=== PATIENT | male | born 1970 | race African-American/Black ===

== ENCOUNTER 2023-09-11 02:24 | Inpatient (IN) | payer MEDICARE, SELFPAY ==
[2023-09-10 18:35] VITALS: BMI 23.1
[2023-09-10 18:37] VITALS: BP 132/98
[2023-09-10 18:42] LABS: Glucose - Point of Care 465 mg/dl (70-99)
[2023-09-10 19:01] LABS: % Basophils 0.6 % (0-2); % Immature Granulocytes 0.5 % (0-0.5); % Monocytes 8.9 % (1.7-9.3); Absolute Basophils 0.1 10^3/uL (0-0.2); Absolute Eosinophils 0.1 10^3/uL (0-0.7); Absolute Lymphocytes 1.9 10^3/uL (1.2-3.4); Absolute Monocytes 0.8 10^3/uL (0.1-0.6); Absolute Neutrophils 5.9 10^3/uL (1.4-6.5); Hematocrit 43.9 % (39.0-52.0); Hemoglobin 15.4 g/dL (13.0-18.0); Mean Corp Hgb Conc. 35.1 g/dL (33.0-37.0); Mean Corpuscular Hgb 28.7 pg (27.0-31.0); Mean Corpuscular Volume 81.9 fL (80.0-94.0); Mean Platelet Volume 9.9 fL (7.4-10.4); Nucleated Red Blood Cells % 0 % (-); Platelet Count 340 10^3/uL (130-400); Red Blood Cell Count 5.36 10^6/uL (4.70-6.10); Red Cell Dist. Width 13.5 % (11.5-14.5); White Blood Cell Count 8.8 10^3/uL (4.8-10.8)
[2023-09-10 19:24] LABS: ALT (SGPT) 26 U/L (0-50); AST (SGOT) 29 U/L (17-59); Albumin 4.5 g/dl (3.5-5.0); Alkaline Phosphatase 254 U/L (38-126); Blood Urea Nitrogen 13 mg/dl (9-20); Calcium 9.9 mg/dl (8.4-10.2); Carbon Dioxide 19 mmol/L (22-30); Chloride 100 mmol/L (98-107); Glucose 398 mg/dl (70-99); Lipase 387 U/L (23-300); Potassium 4.1 mmol/L (3.5-5.1); Sodium 131 mmol/L (135-145); Total Bilirubin 0.6 mg/dl (0.2-1.3); Total Protein 7.6 g/dl (6.3-8.2); eGFR > 60.00
[2023-09-10 19:40] VITALS: BP 131/81
[2023-09-10 20:00] VITALS: BP 117/67
[2023-09-10] MEDS: NSS 1000 IV (20:39)
--- NOTE | 2023-09-10 20:52 | ED.GENMED ---
History of Present Illness
General
Chief Complaint: Blood Sugar Problem
Source: patient
Exam Limitations: none
Time Seen by Provider: 09/10/23 19:30
Nursing documentation reviewed up to this point in time: agreed with
Travel History
Have you had any contact with someone who has COVID-19?: No
Do you have any symptoms of coronavirus? Fever > 100 degrees, chills, cough, shortness of breath, sore throat, loss of taste or smell, muscle aches, or headache?: No
History of Present Illness
History of Present Illness:
The patient is a 53-year-old man with a past medical history of insulin-dependent diabetes who reports that he has been feeling dizzy for several days and feels as though his balance is off. He is also concerned that his blood sugar is elevated.
He admits he has not been taking any of his medication for 4 to 5 months. When asked why, he states ' he has a lot going on'. Patient reports that he has been feeling lightheaded and his balance seems off. He denies chest pain but reports mild
shortness of breath. He denies fevers and chills. He reports he has slight blurred vision but denies any loss of vision or double vision. He denies headache.
Past History
Past History
ED Past Medical History: IDDM, Psychiatric (Anxiety) and Other (type II diabetes, pancreatitis, Umbilical hernia)
ED Past Surgical History: Tonsilectomy
Social History
Tobacco: Smoker
Alcohol: None
Drug: None
Personal: Single
Living: with family
Employment: Other
Family History
Family History: Other
Review of Systems
Review of Systems
Allergies reviewed?: Yes
All Other Systems: ROS reviewed and negative except as documented in HPI and ROS
Constitutional: Reports fatigue
EENT: Reports no symptoms
Respiratory: Reports trouble breathing
Cardiac: Reports no symptoms
ABD/GI: Reports no symptoms
: Reports no symptoms
Musculoskeletal: Reports no symptoms
Skin: Reports no symptoms
Neurological: Reports dizzy
Endocrine: Reports no symptoms
Hematologic/Lymphatic: Reports no symptoms
Psychiatric: Reports no symptoms
Phy Exam
Physical Exam
Physical Exam:
Physical Exam
General: no apparent distress, not acutely ill
Neck: supple. no meningeal signs. normal psoterior pharynx
Heart: s1/s2 regular rate and rhythm, no murmur. equal radial pulses.
Lungs: no acute respiratory distress. clear bilaterally
Abdomen: normal bowel sounds. not tender. no CVAT
Neuro: alert and orientedx3. no focal neurological deficits. Extraocular muscles intact. Cranial nerves equal and symmetric bilaterally. Normal [id number]. PERRL
Skin: no rash
Psychiatric: well kept. interactive and cooperative
Extremities: no edema. no calf tenderness. negative homans. good distal pulses
Course
Orders/Labs/Results
Orders:
Orders
09/10/23 18:54
B-Hydroxybutyrate Urgent
Complete Blood Count/With Diff Urgent
Comprehensive Metabolic Panel Urgent
Lipase Urgent
09/10/23 20:37
0.9% Sodium Chloride 1000 ml [Nss] 1,000 ml IV BOLUS
09/10/23 20:52
CT Head W/o Iv Contrast Urgent
Comment:
Reason For Exam: off balance
09/10/23 20:57
CR Chest - 2 Views Urgent
Comment:
Reason For Exam: SOB
09/10/23 20:58
Electrocardiogram (*1) Urgent
Reason for Study: Palpitations
EKG- Treatment ONCE
09/10/23 21:05
Troponin I Urgent
09/10/23 21:06
Urinalysis Reflex To Culture Urgent
Date Specimen was Collected: 09/10/23
Time Specimen was Collected: 21:05
09/11/23 01:01
Insulin Aspart Pen [Novolog Flexpen] 10 units SC NOW STA
09/11/23 01:02
Admit/Transfer Patient As Directed
Co-Sign Provider:
Level of Care: Inpatient admission
Assign to:: Telemetry
Physician / Group: [email or web address]
Diagnosis: Uncontrol DM, Non compliance with Rx,Acute balance dysfunction
Reason for Telemetry: Other
Other Reason for Telemetry: r/o CVA
Date to Stop Telemetry: 09/13/23
Time to Stop Telemetry: 11:00
Reason for Hospitalization: Uncontrol DM, Non compliance with Rx,Acute balance dysfunction due to dizziness
Expected length of stay greater than two midnights?: Yes
ELOS- Estimated Length of Stay in days: 3
I certify the patient meets the requirements for IP care: Yes
09/11/23 01:05
Code Status As Directed
Resuscitation Status: Full Code
09/11/23 01:08
Aspirin 325 mg PO NOW STA
09/11/23 02:00
Flush (0.9% Sodium Chloride) [Flush (Nss)] See Dose Instructions IV PER PROTOCOL
09/13/23 11:00
DC Protocol for Telemetry ONCE
Abnormal Lab Results
09/10/23 09/10/23 09/10/23
18:40 18:54 21:06
Absolute Monos (auto) 0.8 H 10^3/uL
(0.1-0.6)
Sodium 131 L mmol/L
(135-145)
Carbon Dioxide 19 L mmol/L
(22-30)
Glucose 398 H mg/dl
(70-99)
Alkaline Phosphatase 254 H U/L
(38-126)
Lipase 387 H U/L
(23-300)
Urine Ketones 3+ A
(Negative)
Urine Glucose 3+ A
(Negative)
B-Hydroxybutyrate 4.30 H mmol/L
(0.02-0.27)
POC Glucose 465 H* mg/dl
(70-99)
09/10/23 09/11/23
22:36 01:50
Absolute Monos (auto)
Sodium
Carbon Dioxide
Glucose
Alkaline Phosphatase
Lipase
Urine Ketones
Urine Glucose
B-Hydroxybutyrate
POC Glucose 286 H mg/dl 255 H mg/dl
(70-99) (70-99)
09/10/23 18:54
09/10/23 18:54
Vital Signs
Initial and Last Documented VS:
Initial Vital Signs
Temp Pulse Resp BP Pulse Ox
97.5 F 107 18 132/98 100
09/10/23 18:37 09/10/23 18:37 09/10/23 18:37 09/10/23 18:37 09/10/23 18:37
Last Documented Vital Signs
Temp Pulse Resp BP Pulse Ox
97.5 F 80 16 119/72 96
09/10/23 18:37 09/11/23 00:15 09/11/23 00:15 09/11/23 00:00 09/11/23 00:15
MDM/Problems Addressed
Differential Diagnosis Includes:
Diabetic hyperglycemia, stroke, hyponatremia
MDM/Problems Addressed:
Patient presents with acute dizziness
Chronic conditions affecting care: DM
Acute Exacerbation and/or Progression of Chronic Illness: DM
*Radiology
Radiology exam reviewed: preliminary read by ED provider (Chest x-ray read by me. No acute disease)
*Pulse Oximetry
Patient hypoxic: no
*EKG
Interpreted by ED Provider?: Yes
Interpretation: abnormal
Comparison EKG: no comparison EKG present
Rate: normal
Rhythm: sinus
Moore: normal axis
Interval: normal interval
QRS Pattern: normal QRS
Ischemia: non-specific ST changes
*Rail Gang Supervisor Interpretation
Rate: normal
Interpretation: normal
Rhythm: sinus
*Critical Care Note
Total Time (30-74mins, 75-104mins- exclusive of procedures): Not Applicable
Data Reviewed
Review of Other/Old Records Reveals: Discharge Summary (Discharge summary reviewed from 06/24/2022 when patient was admitted for new onset type 2 diabetes mellitus)
Source: patient and previous hospital records
ED Attending Note
-
Portions of this chart may have been created with voice recognition software.� Occasional wrong word or��sound alike� substitutions may have occurred due to the inherent limitations of voice recognition software.
Discharge Plan
Departure
Patient Disposition: Admit
Admit to: Med/Surg
Presentation/result/management discussed w/ accepting MD/DO: Hospitalist
Patient with high blood pressure during this ER visit?: Yes
Condition: Good
Covid-19: Not Applicable
Discharge Problem:
Diabetes mellitus due to underlying condition, uncontrolled, with hyperglycemia
Prescriptions:
No Action
metformin 500 mg Tablet
500 mg PO BID@0800,1700 Qty: 60 0RF
insulin aspart U-100 [Novolog FlexPen U-100 Insulin] 100 unit/mL (3 mL) Insulin Pen
8 unit SC AC Qty: 15 0RF
insulin glargine [Lantus Solostar U-100 Insulin] 100 unit/mL (3 mL) insulin pen
17 unit SC QPM Qty: 15 0RF
metformin 1,000 mg tablet
1,000 mg PO BID Qty: 60 0RF
glipizide 5 mg tablet
5 mg PO DAILY Qty: 30 0RF
metformin 1,000 mg tablet
1,000 mg PO BID Qty: 60 0RF
glipizide 5 mg tablet extended release 24hr
5 mg PO DAILY Qty: 30 0RF
Referrals:
UNKNOWN - PT DOES,NOT KNOW [Unknown Provider] -
Interventions
Interventions:
*Risk Screen - Suicide Last Done: 09/10/23 19:42
*General Assessment Last Done: 09/10/23 18:37
*Neglect/Abuse Screening Last Done: 09/10/23 19:42
ED- Fall Risk Assessment Last Done: 09/10/23 19:42
*ED COVID-19 Vaccine History Last Done: 09/10/23 18:37
ED- Neurological Assessment Last Done: 09/10/23 19:42
Discharge Date and Time
Print Language: SOMALI
[2023-09-10 21:00] VITALS: BP 103/65
[2023-09-10 21:19] LABS: Urine Albumin Negative (Neg - Trace); Urine Bilirubin Negative (Negative); Urine Character Clear (Clear); Urine Color Straw; Urine Glucose 3+ (Negative); Urine Ketone 3+ (Negative); Urine Leukocyte Negative (Negative); Urine Nitrite Negative (Negative); Urine Occult Blood Negative (Negative); Urine Specific Gravity 1.015 (<1.030); Urine Urobilinogen Negative (Neg - 1+)
[2023-09-10 21:45] LABS: Troponin I 0.024 ng/ml
[2023-09-10 22:00] VITALS: BP 118/75
[2023-09-10 22:38] LABS: Glucose - Point of Care 286 mg/dl (70-99)
[2023-09-10 23:00] VITALS: BP 122/68
[2023-09-11] VITALS (11 sets, daily range): BP systolic 104–134; BP diastolic 61–89; PULSE 85–99; O2SAT 99; BMI 22.3; BMI 42.6
--- NOTE | 2023-09-11 00:56 | HPS.HSE ---
Addendum entered and electronically signed by Lavon Peña MD 09/11/23 01:38:
Correction:
Uncontrol DM
Non AG MA @ 12
POS BHB but suspect starvation ketosis
Non compliance with Meds for last 4-5 months
- IV NS
- Aspart 10 units now and resume 8 AC
- Resume Lantus 17 units HS
- Held Metformin <del>Resume</del> <del>Metformin</del> <del>500</del> <del>BID</del>
- add ISS low
Addendum entered and electronically signed by Lavon Peña MD 09/11/23 01:22:
Ortho VSS now and once in AM
Original Note:
Family Physician
-
Family Physician: * NONE
Chief Complaint
-
Balance issues, Hi BG , not taking Meds
History of Present Illness
HPI
53M Poor historian Dxed DMT2 as 2022 Asif, DC'd on Lantus/Aspart and Metformin pw :
Acute dizziness
- for 1 week
- Coats balance issue with ambulation but denied any falls
- Non focal acute weakness
- Denied abnormal vision
- denied HAN , N & V
Elevated BG @ ER 398
- Non compliance with Meds for last 4-5 months
- No PCP
- Unable to fill the prescription ? no insurance
Medical History
Past Medical History
Past Medical History: Reports IDDM
Past Surgical History: Reports None
Social History
Tobacco: Non-smoker
Alcohol: None
Drug: None
Living: Usp
Family History
Family History: Not pertinent
Allergies / Home Medications
Allergies reflects when Allergies were last updated in [facility].
Home Medications with original date entered in [facility]
Allergy/Medication List:
Allergies
Allergy/AdvReac Type Severity Reaction Status Date / Time
No Known Allergies Allergy Verified 09/10/23 18:40
Home Medications
insulin aspart U-100 100 unit/mL (3 mL) subcutaneous pen (Novolog FlexPen U-100 Insulin aspart) 8 unit (0.08 mL) SC AC #15 mL 06/24/22
insulin glargine 100 unit/mL (3 mL) subcutaneous pen (Lantus Solostar U-100 Insulin) 17 unit (0.17 mL) SC QPM #15 mL 06/24/22
metformin 500 mg tablet 500 mg PO BID@0800,1700 #60 tabs 06/24/22
glipizide 5 mg tablet 5 mg PO DAILY #30 tabs 08/09/22
metformin 1,000 mg tablet 1,000 mg PO BID #60 tabs 08/09/22
glipizide 5 mg tablet, extended release 24 hr 5 mg PO DAILY Diabetes #30 tabs 02/04/23
metformin 1,000 mg tablet 1,000 mg PO BID Diabetes #60 tabs 02/04/23
If Other, explain: pending Rx reconcilliation
Review of Systems
-
Constitutional: Reports No Symptoms
EENT: Reports No Symptoms
Respiratory: Reports No Symptoms
Cardiac: Reports No Symptoms
Abdomen/GI: Reports No Symptoms
: Reports No Symptoms
Musculoskeletal: Reports No Symptoms
Skin: Reports No Symptoms
Neurological: Reports Dizzy
Hematologic/Lymphatic: Reports No Symptoms and See HPI
Psych: Reports No Symptoms
Physical Exam
Vital Signs
Vital Signs
Temp Pulse Resp BP Pulse Ox
97.5 F 80 16 119/72 96
09/10/23 18:37 09/11/23 00:15 09/11/23 00:15 09/11/23 00:00 09/11/23 00:15
Physical Exam
General: No Apparent Distress; No Appears Chronically Ill
HEENT: NormoCephalic, Anicteric, Moist mucous membranes, Atraumatic, PERRLA and Other
Respiratory: Clear
Cardiac: S1/S2 and Regular Rhythm
Breast: Deferred by me
GI: Soft, Non Tender, Non Distended and Normal Bowel Sounds
Genito-urinary: Deferred by me
Musculoskeletal: No Edema
Skin: Warm and Dry
Neuro: AO x 3 and Nonfocal/grossly intact; No Slurred Speech or Facial Droop
Psych: Calm
Laboratory Results
-
09/10/23 18:54
09/10/23 18:54
Laboratory Results
Total Bilirubin 0.6 mg/dl (0.2-1.3) 09/10/23 18:54
AST 29 U/L (17-59) 09/10/23 18:54
ALT 26 U/L (0-50) 09/10/23 18:54
Alkaline Phosphatase 254 U/L (38-126) H 09/10/23 18:54
Troponin I 0.024 ng/ml 09/10/23 21:05
Lipase 387 U/L (23-300) H 09/10/23 18:54
Data Reviewed
-
CT Scan: Report Reviewed by me
Lab Data: Labs Reviewed by me
Old Records: Reviewed
Impression/Plan
-
Reviewed VS: Afebrile, HR 80 BP 103/65 - 119/72 RR 16 POx 96 on RA
Data
nl CBC
Na 131
CO2 19
nl Cr
BG 398
Qaopam253
BHB 4.3
Normal AG MA @12
HCT: No obvious stroke
CXR: NAD by my view
Last hospitalist admission: 06/22/22 - 06/24/22 DX: Newly diagnosed diabetes type 2.
ASSESSMENT & PLAN
Uncontrol DM
Non AG MA @ 12
POS BHB but suspect starvation ketosis
Non compliance with Meds for last 4-5 months
- IV NS
- Aspart 10 units now and resume 8 AC
- Resume Lantus 17 units HS
- Resume Metformin 500 BID
- add ISS low
Acute dizziness with balance dysfunction DDX: to acute metabolic issue vs. occult CVA
No nystagmus, non focal exam
- not better even after getting fluids
- empiric loading dose ASA then daily baby ASA
- PT/OT
- Brain MRI to r/o TALENT BUYER region CVA -
- To consider Neuro consult in AM if no progress made with correcting hyperglycemia
DVT Px: LMWH
Code: Full
IP TLM
[2023-09-11] MEDS: ASPIRIN 325 MG PO (01:46)
[2023-09-11 01:52] LABS: Glucose - Point of Care 255 mg/dl (70-99)
[2023-09-11] MEDS: NOVOLOG FLEXPEN 10 UNITS SC (01:53)
[2023-09-11] MEDS: NSS 1000 IV ×3 (03:39→20:30)
--- NOTE | 2023-09-11 06:32 | PTCARENOTE ---
Received patient from ER, AAOx4. Patient ambulated from stretcher to his bed. No c/o pain, does c/o dizziness. Advised patient to call for assistance with any OOB, patient agreeable. Oriented to unit, plan of care continues.
[2023-09-11 06:57] LABS: Hemoglobin 12.9 g/dL (13.0-18.0); Mean Corp Hgb Conc. 34.9 g/dL (33.0-37.0); Mean Corpuscular Hgb 28.5 pg (27.0-31.0); Mean Corpuscular Volume 81.9 fL (80.0-94.0); Platelet Count 300 10^3/uL (130-400); Red Blood Cell Count 4.52 10^6/uL (4.70-6.10); Red Cell Dist. Width 13.4 % (11.5-14.5); White Blood Cell Count 6.8 10^3/uL (4.8-10.8)
[2023-09-11 07:25] LABS: ALT (SGPT) 20 U/L (0-50); AST (SGOT) 22 U/L (17-59); Albumin 2.9 g/dl (3.5-5.0); Alkaline Phosphatase 105 U/L (38-126); Blood Urea Nitrogen 11 mg/dl (9-20); Calcium 8.6 mg/dl (8.4-10.2); Chloride 105 mmol/L (98-107); Estimated Creatinine Clearance > 125 ml/min; Glucose 206 mg/dl (70-99); Lipase 142 U/L (23-300); Potassium 3.7 mmol/L (3.5-5.1); Sodium 134 mmol/L (135-145); Total Bilirubin 0.5 mg/dl (0.2-1.3); Total Protein 5.6 g/dl (6.3-8.2); eGFR > 60.00
[2023-09-11 07:27] LABS: Glucose - Point of Care 229 mg/dl (70-99)
[2023-09-11 07:37] LABS: Carbon Dioxide 23 mmol/L (22-30)
[2023-09-11] MEDS: LOW STRENGTH ASPIRIN 81 MG PO (09:03)
[2023-09-11] MEDS: NOVOLOG FLEXPEN 8 UNITS SC ×3 (09:08→17:50)
[2023-09-11] MEDS: NOVOLOG FLEXPEN-LOW RESISTANCE 2 UNITS SC (09:08)
[2023-09-11 10:36] LABS: Glycohemoglobin (HgbA1c) > 18.5 % (4.0-5.6)
[2023-09-11] MEDS: ANTIVERT 25 MG PO ×2 (11:38→20:33)
[2023-09-11 11:46] LABS: Glucose - Point of Care 285 mg/dl (70-99)
[2023-09-11] MEDS: NOVOLOG FLEXPEN-LOW RESISTANCE 3 UNITS SC (11:51)
--- NOTE | 2023-09-11 13:23 | W.PN.UPDATE ---
Update Note
Progress Note Update
Nonbillable note
Admitting physician history and physical reviewed
1. Acute ataxia
-Denies of having any previous episodes of similar issues. No focal neurological deficit
-Recent ear infection approximately 1 week back possible component of vertigo as well. Patient does state things spinning around. Meclizine as needed ordered
-PT OT evaluation for vestibular assessment
-CT head without contrast negative for acute abnormality, MRI brain without contrast pending
-Maintain on aspirin and statin until posterior circulation CVA ruled out
2. Uncontrolled DM2
-Hemoglobin A1c greater than 18.5
-Increasing insulin Lantus to 20 units at bedtime and novolog 11U premeal
-Diabetes nurse petitioner consulted for how
3. HLD
-check lipid profile
[2023-09-11 16:40] LABS: Glucose - Point of Care 172 mg/dl (70-99)
[2023-09-11] MEDS: LIPITOR 40 MG PO (17:22)
[2023-09-11] MEDS: LANTUS 0.200000000000000011 UNITS SC (17:23)
[2023-09-11] MEDS: NOVOLOG FLEXPEN-LOW RESISTANCE 1 UNITS SC (17:23)
[2023-09-11] MEDS: LOVENOX 40 MG SC (17:23)
[2023-09-11 21:14] LABS: Glucose - Point of Care 229 mg/dl (70-99)
[2023-09-12 03:40] VITALS: BP 138/83
[2023-09-12] MEDS: NSS 1000 IV (04:25)
[2023-09-12 05:58] LABS: HDL Cholesterol 46 mg/dl; LDL Cholesterol, Calculated 99 mg/dl; Total Cholesterol 161 mg/dl (50-199); Triglyceride 84 mg/dl (10-149); Very Low Density Lipoprotein 16 mg/dl (0-30)
[2023-09-12 07:25] VITALS: BP 134/91
[2023-09-12 07:26] LABS: Glucose - Point of Care 181 mg/dl (70-99)
[2023-09-12] MEDS: NOVOLOG FLEXPEN-LOW RESISTANCE 1 UNITS SC ×2 (08:13→17:06)
[2023-09-12] MEDS: NOVOLOG FLEXPEN 8 UNITS SC (08:13)
[2023-09-12] MEDS: LOW STRENGTH ASPIRIN 81 MG PO (08:14)
--- NOTE | 2023-09-12 08:57 | PN.DE.MGMTRT ---
Addendum entered and electronically signed by ANISHA Hagan 09/12/23 14:36:
Discussed after discharge Diabetes care and management, pt has no PCP and states he is not sure if he has insurance. Encouraged and emphasized to pt the need for close out patient follow for diabetes care. Encouraged pt to call the [facility] and start the process for registration. Will start pt on oral regimen starting at dinner time.
Metformin 1000 mg BID and Glipizide 5mg BID. Explained to pt that his A1C and Diabetes has been uncontrolled for an extended period of time and that the oral regimen may not be adequate form of management. Pt again verbalized that he will not be
able to afford insulin until he finds a job.
Original Note:
Insulin Management
- -
09/12/2023: Diabetes Management Consult:
53 year old male w/ PMH that includes: Anxiety, pancreatitis and T2DM, p/w dizziness, blurry vision and
Glucose on admission was 398 mg/dl, A1C 18.5%, (up from 12.5% on 06/22/22), Cr 0.5, eGFR >60
Was taking Metformin 1000 mg BID and Glipizide 5mg BID but has not taken his diabetes medication in over 5 months due to cost.
Pt seen in room, resting in bed, offers no complaints. He reports that he has lost ~60lbs in about a month, says he was 240 lbs in July and he is down to 182 lbs.
States he lost his job and is living on a tight budget. He is adamant that he will not be able to afford any type of insulin, not even the 70/30 mixture.
He continues to say that he is not even sure if he will be able to afford MFM and Glipizide.
He states that he has test strips and lancets but was not monitoring his blood sugars and does not know the brand name of his monitor. He is also not sure if he has one at home.
He is in the process of calling someone at home to confirm that name of the monitor.
He was started on Lantus 17 units and NovoLog AC 5 units.
His glucose remained elevated yesterday, premeal 172 to 285 with a fasting blood sugar range of 181 to 229 and his glucose was adjusted to Lantus 20 units and NovoLog AC to 8 units.
Will further increase Lantus to 25 units @ HS and NovoLog to 12 units AC
Cont low corrective and Metformin 1000mg BID
Diabetes History
- -
Type of Diabetes: 2 requiring insulin
Pre-Admission Diabetes Regimen
Lab Results
Hemoglobin A1c > 18.5 % (4.0-5.6) H 09/11/23 06:43
Insulin Pump Settings
IP Diabetes Regimen
09/11/23 09/11/23 09/11/23
11:44 16:36 21:13
POC Glucose 285 H 172 H 229 H
09/12/23
07:25
POC Glucose 181 H
Meal type: Lunch
Amount consumed: 100%
Patient Education
[2023-09-12] MEDS: GLUCOPHAGE 1000 MG PO ×2 (10:32→17:05)
--- NOTE | 2023-09-12 11:14 | CM ---
Patient seen bedside, initial assessment completed. Patient reports he is currently homeless, before coming to the Hospital he was staying with his girlfriend, he can no longer return to girlfriends home. Patient reports he was previously working,
is no longer working. Patient reports he has no friends or family local. Patient denies DME, VN, or SNF. Patient reports [facility] is the closest pharmacy to where he previously was living, reports he does not have a primary care doctor.
CM discussed where patient will go when he is ready for discharge, patient reports he will need to figure that out. Patient agreeable to list of local shelters. CM will continue to follow for discharge planning needs.
Plan; homeless, will provide list of local shelters.
[2023-09-12 11:20] VITALS: BP 129/82
[2023-09-12 11:57] LABS: Glucose - Point of Care 328 mg/dl (70-99)
[2023-09-12] MEDS: NOVOLOG FLEXPEN 12 UNITS SC ×2 (13:04→17:05)
[2023-09-12] MEDS: NOVOLOG FLEXPEN-LOW RESISTANCE 4 UNITS SC (13:05)
--- NOTE | 2023-09-12 13:20 | W.PN.HOSP.TC ---
Today's Communication/Plan
-
Monitor vital signs
see plan
Insulin glucose monitoring teaching
Monitor blood sugars
Continue with aspirin, statin
PT for vestibular therapy
Assessment / Plan
Assessment / Plan
Acute ataxia
-Denies of having any previous episodes of similar issues. No focal neurological deficit
-Recent ear infection approximately 1 week back possible component of vertigo as well. Patient does state things spinning around. Meclizine as needed ordered
-PT OT evaluation for vestibular assessment
-CT head without contrast negative for acute abnormality, MRI brain without contrast pending
-MRI without any acute CVA. Did show 1.1 cm chronic white matter infarct in the left frontal lobe centrum semiovale. Given these findings we will keep patient on baby aspirin.
Patient tells me that he is currently not taking any medications. On last admission he was diagnosed with diabetes and instructed to take his medications. He does not follow-up with any primary care provider. He also has lost his job and is
homeless.
Diabetes APPRENTICE STYLIST following
Uncontrolled DM2
-Hemoglobin A1c greater than 18.5
-Continue with Lantus and aspart,Started on metformin
-Diabetes nurse petitioner consulted, will need insulin and glucose monitoring teaching
HLD
LDL 99, will keep on atorvastatin
DVT prophylaxis
Lovenox
Full code
unit trust manager aware regarding homeless status and no PCP
Anticipated Discharge: Within 24 hours
Subjective/Interval History
-
Date of Service: September 12, 2023
denies nausea
Objective Data
-
Vital Signs:
Vital Signs
Temp Pulse Resp BP Pulse Ox
98.5 F 96 16 129/82 99
09/12/23 11:20 09/12/23 11:20 09/12/23 11:20 09/12/23 11:20 09/12/23 11:20
I&O
09/11/23 09/12/23 09/13/23
06:59 06:59 06:59
Intake Total 3120 / 3120
Output Total 4150 / 4150
Balance -1030 / -1030
[2023-09-12 15:45] VITALS: BP 126/91
[2023-09-12 16:58] LABS: Glucose - Point of Care 186 mg/dl (70-99)
[2023-09-12] MEDS: LIPITOR 40 MG PO (17:05)
[2023-09-12] MEDS: LOVENOX 40 MG SC (17:05)
[2023-09-12] MEDS: LANTUS 0.25 UNITS SC (17:09)
[2023-09-12] MEDS: ANTIVERT 25 MG PO (17:09)
[2023-09-12 19:39] VITALS: BP 108/73
[2023-09-12 22:04] LABS: Glucose - Point of Care 157 mg/dl (70-99)
[2023-09-12 23:00] VITALS: BP 111/68
[2023-09-13 03:31] VITALS: BP 104/65
[2023-09-13 07:40] VITALS: BP 97/55
[2023-09-13 07:53] LABS: Glucose - Point of Care 177 mg/dl (70-99)
[2023-09-13] MEDS: GLUCOPHAGE 1000 MG PO (09:31)
[2023-09-13] MEDS: NOVOLOG FLEXPEN 12 UNITS SC (09:32)
[2023-09-13] MEDS: LOW STRENGTH ASPIRIN 81 MG PO (09:32)
[2023-09-13] MEDS: NOVOLOG FLEXPEN-LOW RESISTANCE 1 UNITS SC (09:34)
--- NOTE | 2023-09-13 10:27 | W.PN.HOSP.TC ---
Addendum entered and electronically signed by Sohan Dc MD 09/13/23 11:37:
Starvation ketosis was present on admission and is now improved
Original Note:
Today's Communication/Plan
-
monitor vitals
see plan
dc today
cw metfromin
time of discharge 37 minutes
Assessment / Plan
Assessment / Plan
Acute Vertigo
resolved
-Denies of having any previous episodes of similar issues. No focal neurological deficit
-Recent ear infection approximately 1 week back possible component of vertigo as well. Patient does state things spinning around. Meclizine as needed ordered
-PT OT evaluation for vestibular assessment
-CT head without contrast negative for acute abnormality, MRI brain without contrast pending
-MRI without any acute CVA. Did show 1.1 cm chronic white matter infarct in the left frontal lobe centrum semiovale. Given these findings we will keep patient on baby aspirin.
Patient tells me that he is currently not taking any medications. On last admission he was diagnosed with diabetes and instructed to take his medications. He does not follow-up with any primary care provider. He also has lost his job and is
homeless.
Diabetes AIR POLLUTION CONTROL ENGINEER following; patient doesnt want insulin and cant afford. currently now on metfromin; glipizide will be added on dc. Patient aware to go to his PCP soon for further management. He was also given information regarding free clinic.
Uncontrolled DM2
-Hemoglobin A1c greater than 18.5
Diabetes AIR POLLUTION CONTROL ENGINEER following; patient doesnt want insulin and cant afford. currently now on metfromin; glipizide will be added on dc. Patient aware to go to his PCP soon for further management. He was also given information regarding free clinic.
HLD
LDL 99, will keep on atorvastatin
DVT prophylaxis
Lovenox
Full code
manager front aware regarding homeless status
Anticipated Discharge: Today
Subjective/Interval History
-
Date of Service: September 13, 2023
denies pain
Objective Data
-
Vital Signs:
Vital Signs
Temp Pulse Resp BP Pulse Ox
98.2 F 98 16 97/55 99
09/13/23 07:40 09/13/23 07:40 09/13/23 07:40 09/13/23 07:40 09/13/23 09:36
I&O
09/12/23 09/13/23 09/14/23
06:59 06:59 06:59
Intake Total 3120 / 3120 2820 / 2820
Output Total 4150 / 4150 2700 / 2700
Balance -1030 / -1030 120 / 120
--- NOTE | 2023-09-13 10:34 | W.DCSUMMARY ---
Discharge Summary
Discharge Data
Date of Admission: 09/11/23
Date of Discharge: 09/13/23
-
Pending Results: No
Hospital Course
53-year-old male with past medical history of uncontrolled diabetes mellitus, hyperlipidemia came to the hospital with acute vertigo. CT scan initially was done which was negative for any acute hemorrhage. MRI was later done which showed chronic
white matter infarct in the left frontal lobe. Patient was kept on aspirin and statin. His vertigo continue to improve on meclizine. Patient has uncontrolled diabetes mellitus due to noncompliance. A1c was greater than 18.5. Patient was seen by
diabetes nurse practitioner throughout hospitalization. Initially patient was started on insulin however due to close patient refused to take insulin. On discharge patient was started on metformin and glipizide. Patient was given clear
instructions to follow-up closely with primary care provider and was also given information regarding free clinic for further assistance. Once patient sugars were improving, he was then discharged home with instructions to follow-up with all his
physicians outpatient.
Discharge Plan
-
Patient Disposition: Home (Routine Discharge)
Discharge Diagnosis/Procedures: Uncontrolled diabetes mellitus
Old stroke
Vertigo
Condition: Fair
Diet: As tolerated
Activity: As tolerated
Driving Restrictions: As prior to admission
Bathing Restrictions: None
Referrals:
NONE,* [Family Provider] - in less than 1 week
Prescriptions:
New
atorvastatin 40 mg Tablet
40 mg PO QPM Qty: 30 0RF
meclizine 25 mg Tablet
25 mg PO Q8HPRN PRN (Reason: dizziness) Qty: 7 0RF
metformin 1,000 mg Tablet
1,000 mg PO BID@0800,1700 Qty: 60 0RF
aspirin [Children's Aspirin] 81 mg Tablet,Chewable
81 mg PO DAILY Qty: 30 0RF
Changed
glipizide 5 mg tablet
5 mg PO BID Qty: 60 0RF
Discontinued
metformin 500 mg Tablet
500 mg PO BID@0800,1700 Qty: 60 0RF
insulin aspart U-100 [Novolog FlexPen U-100 Insulin] 100 unit/mL (3 mL) Insulin Pen
8 unit SC AC Qty: 15 0RF
insulin glargine [Lantus Solostar U-100 Insulin] 100 unit/mL (3 mL) insulin pen
17 unit SC QPM Qty: 15 0RF
metformin 1,000 mg tablet
1,000 mg PO BID Qty: 60 0RF
metformin 1,000 mg tablet
1,000 mg PO BID Qty: 60 0RF
glipizide 5 mg tablet extended release 24hr
5 mg PO DAILY Qty: 30 0RF
Discharge Orders:
Discharge Patient (As Directed); Ordered 09/13/23
Ordered By: Sohan Dc
Discharge Date and Time
Discharge Date/Time: 09/13/23 12:31
Print Language: HUNGARIAN
--- NOTE | 2023-09-13 11:14 | PTCARENOTE ---
Reviewed discharge instructions with patient. Patient verbalizes understanding of all teaching and denies questions at this time. Peripheral IV removed. Telemetry removed. Patient dressed. Patient awaiting lunch tray. Patient states that a cell
phone and ear buds were dropped to the front desk auxiliary of the hospital 3 days ago. train reservation clerk called the front desk auxiliary and there is no package, cell phone or ear buds for patient. Patient made aware.
[2023-09-13 11:20] LABS: Glucose - Point of Care 160 mg/dl (70-99)
[2023-09-13 11:21] VITALS: BP 121/91
--- NOTE | 2023-09-13 11:21 | PTCARENOTE ---
Case management arranged a Lyft for when patient is ready for discharge. Patient would like to eat lunch and then he will ring to be brought to main lobby.
--- NOTE | 2023-09-13 11:22 | PN.CDI ---
CDI
- -
CDI:
Physician Documentation Request
Admit Date: 09/11/23 02:24
Dear Doctor Dao,
Please review the following and provide your response in the progress notes.
Clinical Indicators:
The diagnosis of starvation ketosis was documented on H&P, but is not consistently noted in subsequent documentation.
- H&P 'POS BHB but suspect starvation ketosis'
- 'Non compliance with Meds for last 4-5 months'
- 09/10 Supplier Specialist 'significant 23.8% weight loss x 6 months'
- 5L IVF given
Please clarify the following:
____ - Starvation ketosis was present on admission and is now resolved.
____ - Starvation ketosis was present on admission and is still being monitored, evaluated or treated
____ - Starvation ketosis was ruled out
____ - Starvation ketosis is still a likely, suspected, probable diagnosis
____ - Other
Use of terms such as suspected, likely, concern for, or probable (associated with a specific diagnosis that is being evaluated, monitored, or treated as if it exists) are acceptable and can be coded in the inpatient setting, when documented at the
time of discharge.
Thank you,
Daiana Saldivar RN
CDI Specialist
Please use your independent medical judgment in providing your response.
--- NOTE | 2023-09-13 11:28 | PN.DE.MGMTRT ---
Insulin Management
- -
09/13/2023: Diabetes Management Consult Follow up:
Patient admitted with blood sugar problem. PMH that includes: Anxiety, pancreatitis and T2DM,
Glucose on admission was 398 mg/dl, A1C 18.5%, (up from 12.5% on 06/22/22), Cr 0.5, eGFR >60
Was taking Metformin 1000 mg BID and Glipizide 5mg BID but has not taken his diabetes medication in over 5 months due to cost.
Patient is awake alert and oriented, in bed. He states he just got a job yesterday.
States he lost his job and is living on a tight budget. He is adamant that he will not be able to afford any type of insulin, not even the 70/30 mixture.
He states he cannot afford insulin and only wants pills.
He states that he has test strips and lancets but was not monitoring his blood sugars prior to admission.
He received Lantus 25 units yesterday and NovoLog AC 12 units.
His glucose remained elevated yesterday, premeal 181 to 326 with a fasting this AM 177.
At discharge patient to resume metformin and glipizide due to cost. He is attempting to reach his insurance to determine cost of insulin if prexcriptions are covered at all.
Diabetes History
- -
Type of Diabetes: 2
Pre-Admission Diabetes Regimen
Lab Results
Hemoglobin A1c > 18.5 % (4.0-5.6) H 09/11/23 06:43
Insulin Pump Settings
IP Diabetes Regimen
09/12/23 09/12/23 09/12/23
11:56 16:56 22:02
POC Glucose 328 H 186 H 157 H
09/13/23 09/13/23
07:52 11:19
POC Glucose 177 H 160 H
Meal type: Breakfast
Meal type: Dinner
Meal type: Lunch
Amount consumed: 100%
Amount consumed: 100%
Amount consumed: 100%
Patient Education
--- NOTE | 2023-09-13 12:21 | CM ---
Patient seen bedside, reports he tried calling his insurance but he was unable to get through to confirm prescription coverage. CM inquired if patient has insurance card with him, patient declines, reports he is ready to leave. CM discussed PT/OT
recommendation of outpatient therapy, patient declining script for outpatient PT. Patient reports he has no money or anyone to give him a ride. CM obtained address and cell phone number for patient, Lyft ride provided. CM will continue to follow for
discharge planning needs.
Plan; Lyft transport, no needs.
== END 2023-09-13 12:31 | disposition home or self-care (01) | DRG 638 ==
LOC: 4 EAST ACU 02:24
PROVIDERS: Emergency Medicine; Hospitalist; ADMITTING PHYSICIAN Internal Medicine; ATTENDING PHYSICIAN Internal Medicine; EMERGENCY PHYSICIAN Emergency Medicine
DX: E11.65 Type 2 diabetes mellitus with hyperglycemia (principal); E87.20 Acidosis, unspecified; Z59.00 Homelessness unspecified; E78.5 Hyperlipidemia, unspecified; E88.89 Other specified metabolic disorders; T73.0XXA Starvation, initial encounter; X58.XXXA Exposure to other specified factors, initial encounter; Z91.199 Patient's noncompliance with other medical treatment and regimen due to unspecified reason
CPT/HCPCS: 70450; 70551; 71046; 80053; 80061; 81003; 82010; 82962; 83036; 83690; 84484; 85025; 85027; 96360; 96372; 97162; 97166; 99285; 99406